=== PATIENT | male | born 1990 | race Asian ===

== ENCOUNTER 2019-10-01 20:48 | Inpatient (IN) | payer BC ==
[~2019-10-01] VITALS: Ht 167.6 cm; Wt 61.4 kg
[2019-10-01 21:00] VITALS: BP 128/81
[2019-10-01] MEDS ORDERED: Oxymetazoline 0.05% Na Spray 30ml NASAL ONE ×2 (21:01→21:45)
[2019-10-01] MEDS ORDERED: Clindamycin 600mg 50 ML IVPB ONE (21:15)
[2019-10-01] MEDS ORDERED: LORazepam Inj 2mg/ml 1ml IV ONE (21:15)
--- NOTE | 2019-10-01 21:30 | Emergency Room Report ---
History of Present Illness General Chief Complaint: Nosebleed Source: Patient Present Illness HPI This patient is status post nasal septal surgery today. He is accompanied by the plastic surgeon who did the nasal septal surgery Dr. Denson. He presents with bleeding from the left nare that has soaked the gauze packing and also dripping down the back of his throat. He also feels very anxious and has a sensation of not being able to breathe. He has no other complaints. 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 Patient History Past Medical History: none, see triage record Reviewed Nursing Documentation: PMH: Agreed; PSxH: Agreed Review of Systems All Other Systems: negative except mentioned in HPI Physical Exam Vital Signs Date Time Temp Pulse Resp B/P (MAP) Pulse Ox O2 Delivery O2 Flow Rate FiO2 10/01/19 20:57 98.2 83 20 128/81 (97) 100 Room Air Sp02 EP Interpretation: reviewed, normal General Appearance: no apparent distress, alert, GCS 15, non-toxic Head: normocephalic, atraumatic Eyes: bilateral eye normal inspection, bilateral eye PERRL ENT: hearing grossly normal, normal pharynx, no angioedema, normal voice, other - Nares pack. +blood from L. nare. Neck: normal inspection Respiratory: no respiratory distress, no retraction, no accessory muscle use, speaking full sentences Cardiovascular #1: regular rate, rhythm, no edema Rectal: deferred Musculoskeletal: back normal, normal range of motion, gait/station normal, non- tender Neurologic: alert, motor strength/tone normal, oriented x3, sensory intact, responsive, speech normal Psychiatric: judgement/insight normal, memory normal, mood/affect normal, no suicidal/homicidal ideation Skin: no rash, normal color Medical Decision Making Diagnostic Impression: Primary Impression: Post-op bleeding Additional Impression: Posterior epistaxis ER Course This patient presented with post operative bleeding of the left nare. He was accompanied by the plastic surgeon Dr. Denson. Afrin spray was placed in the nare. Dr. Denson placed a posterior Rhino Rocket. Patient was very anxious so I did give him IV Ativan. He was given IV fluids and IV antibiotics as a precaution. He will be admitted for monitoring with posterior nasal rhino- rocket packing and for monitoring of postoperative bleeding. Further management per Dr. Denson and the inpatient physician. Laboratory Tests Test 10/01/19 21:30 White Blood Count 12.9 K/UL (4.8-10.8) H Red Blood Count 4.45 M/UL (4.70-6.10) L Hemoglobin 14.1 G/DL (14.2-18.0) L Hematocrit 41.7 % (42.0-52.0) L Mean Corpuscular Volume 94 FL (80-99) Mean Corpuscular Hemoglobin 31.6 PG (27.0-31.0) H Mean Corpuscular Hemoglobin Concent 33.7 G/DL (32.0-36.0) Red Cell Distribution Width 11.3 % (11.6-14.8) L Platelet Count 281 K/UL (150-450) Mean Platelet Volume 6.1 FL (6.5-10.1) L Neutrophils (%) (Auto) 87.8 % (45.0-75.0) H Lymphocytes (%) (Auto) 7.6 % (20.0-45.0) L Monocytes (%) (Auto) 4.4 % (1.0-10.0) Eosinophils (%) (Auto) 0.0 % (0.0-3.0) Basophils (%) (Auto) 0.2 % (0.0-2.0) Sodium Level 138 MMOL/L (136-145) Potassium Level 4.2 MMOL/L (3.5-5.1) Chloride Level 104 MMOL/L (98-107) Carbon Dioxide Level 23 MMOL/L (21-32) Anion Gap 11 mmol/L (5-15) Blood Urea Nitrogen 20 mg/dL (7-18) H Creatinine 1.0 MG/DL (0.55-1.30) Estimated Glomerular Filtration Rate > 60 mL/min (>60) Glucose Level 144 MG/DL (74-106) H Calcium Level 8.6 MG/DL (8.5-10.1) Last Vital Signs Date Time Temp Pulse Resp B/P (MAP) Pulse Ox O2 Delivery O2 Flow Rate FiO2 10/01/19 20:57 98.2 83 20 128/81 (97) 100 Room Air Status: improved Disposition: ELOPED Condition: Serious Referrals: VISHAL DENSON M.D. (PCP) Sonia Viera DO Oct 01, 2019 21:30
[2019-10-01 21:51] LABS: BASOPHILS % (AUTO) 0.2 % (0.0-2.0); HEMATOCRIT 41.7 % (42.0-52.0); HEMOGLOBIN 14.1 G/DL (14.2-18.0); LYMPHOCYTES % (AUTO) 7.6 % (20.0-45.0); MEAN CORPUSCULAR VOLUME 94 FL (80-99); MONOCYTES % (AUTO) 4.4 % (1.0-10.0); NEUTROPHILS % (AUTO) 87.8 % (45.0-75.0); PLATELET COUNT 281 K/UL (150-450); RED BLOOD COUNT 4.45 M/UL (4.70-6.10); RED CELL DISTRIBUTION WIDTH 11.3 % (11.6-14.8); WHITE BLOOD COUNT 12.9 K/UL (4.8-10.8)
[2019-10-01 21:56] LABS: ANION GAP 11 mmol/L (5-15); BLOOD UREA NITROGEN 20 mg/dL (7-18); CALCIUM 8.6 MG/DL (8.5-10.1); CARBON DIOXIDE 23 MMOL/L (21-32); CHLORIDE 104 MMOL/L (98-107); POTASSIUM 4.2 MMOL/L (3.5-5.1); SODIUM 138 MMOL/L (136-145)
[2019-10-01] MEDS ORDERED: Milk of Magnesia 30ml Ud ORAL PRN (22:00)
[2019-10-01] MEDS ORDERED: HYDROcodone/Acetamin 5/325 tab ORAL PRN (22:00)
[2019-10-01] MEDS ORDERED: Zolpidem 5mg tab ORAL PRN (22:00)
[2019-10-01] MEDS ORDERED: Acetaminophen 650 MG SUPP RECTAL PRN ×2 (22:00)
[2019-10-01] MEDS ORDERED: Mylanta II UD 30ml ORAL PRN (22:00)
[2019-10-01] MEDS ORDERED: ZOFRAN ODT8 MG ORAL (22:33)
[2019-10-01] MEDS ORDERED: CEPHALEXIN500 MG ORAL (22:33)
[2019-10-01] MEDS ORDERED: PERCOCET 5-3251 EACH ORAL (22:33)
[2019-10-01] MEDS ORDERED: VALIUM5 MG ORAL (22:33)
[2019-10-01] MEDS: D5 1/2NS 1,000 ML IV SCH (23:05)
[2019-10-02] VITALS: BP 112/86
[2019-10-02 04:00] VITALS: BP 110/85
[2019-10-02 06:25] LABS: BASOPHILS % (AUTO) 0.4 % (0.0-2.0); EOSINOPHILS % (AUTO) 0.1 % (0.0-3.0); HEMATOCRIT 36.8 % (42.0-52.0); HEMOGLOBIN 12.1 G/DL (14.2-18.0); LYMPHOCYTES % (AUTO) 16.9 % (20.0-45.0); MEAN CORPUSCULAR VOLUME 95 FL (80-99); NEUTROPHILS % (AUTO) 72.7 % (45.0-75.0); PLATELET COUNT 216 K/UL (150-450); RED BLOOD COUNT 3.87 M/UL (4.70-6.10); RED CELL DISTRIBUTION WIDTH 10.9 % (11.6-14.8); WHITE BLOOD COUNT 12.8 K/UL (4.8-10.8)
[2019-10-02 08:00] VITALS: BP 121/80
[2019-10-02] MEDS: D5 1/2NS 1,000 ML IV SCH (09:09)
[2019-10-02 12:00] VITALS: BP 125/76
[2019-10-02] MEDS ORDERED: D5 1/2NS 1000ml IV ONE (14:53)
--- NOTE | 2019-10-02 15:00 | History and Physical Report ---
DATE OF ADMISSION: 10/01/2019 REASON FOR ADMISSION: Nasal bleeding. HISTORY OF PRESENT ILLNESS: Patient had surgery on 10/01/[address] Denson for nasal septal surgery. He presented with a moderate amount of bleeding from the left naris and had a nasal packing with a Rhino Rocket in the emergency room. He has generally been in excellent health. ALLERGIES: None known. MEDICATIONS: Adderall 7.5 mg b.i.d., which he is not taking the last several days. PRIOR SURGERIES: None except for wisdom teeth and the above. REVIEW OF SYSTEMS: Completely negative, other than the current problem and taking Adderall currently for attention deficit. PHYSICAL EXAMINATION: GENERAL: Patient is a well-developed man, in no acute distress. VITAL SIGNS: Temperature 98.1, pulse 87, respirations 21, blood pressure 121/80. HEENT: He has a Rhino Rocket in the left nostril. There is no active bleeding. No blood in the back of throat. NECK: No adenopathy. LUNGS: Clear. HEART: Regular rhythm. No murmur. ABDOMEN: Soft without organomegaly. EXTREMITIES: No edema, cyanosis, or clubbing. NEUROLOGIC: He is alert and oriented. Cranial nerves are intact. LABORATORY AND DIAGNOSTIC DATA: Reviewed. His hemoglobin 14.1 on 10/01/2019 and 12.1 on 10/02/2019. Chemistries are normal except for glucose of 144, likely from an IV. IMPRESSION: 1. Nasal bleeding postoperative. 2. Mild blood loss. 3. Glucose intolerance. PLAN: As per his surgeon when stabilized from surgical point of view, he is cleared medically for discharge. David Negron M.D. DR: ITZEL JOB#: [id number] CC:
[2019-10-02 16:00] VITALS: BP 119/73
[2019-10-02 20:00] VITALS: BP 120/75
--- NOTE | 2019-10-06 11:02 | Discharge Summary ---
Discharge Summary Discharge Summary _ DATE OF ADMISSION: 10/01/2019 DATE OF DISCHARGE: 10/02/2019 DISCHARGED BY: Dr. Negron REASON FOR ADMISSION: 29 years old male with no significant past medical history, had nasal septal surgery by Dr. Denson on 10/01/2019. Patient presented with bleeding from the left nare that soaked the gauze packing and was dripping down the back of his throat. Upon evaluation WBC 12.9, stable hemoglobin, hematocrit and platelet count. Stable electrolytes and renal parameters. Glucose 144 In emergency department Afrin spray was placed in the nare. Surgeon placed a posterior Rhino Rocket. Patient received IV fluids and empiric antibiotic and admitted for monitoring of posterior nasal Rhino Rocket packing and postoperative bleeding. HOSPITAL COURSE: Patient admitted to medical surgical floor. Nasal bleeding was stabilized and stopped. The next day hemoglobin 12.1 , hematocrit 36.8. Patient was clinically stable for discharge home. Due to rapid and unexpected improvement in patient condition, patient was discharged in 1 day. FINAL DIAGNOSES: Postoperative nasal bleeding Mild blood loss Glucose intolerance DISCHARGE MEDICATIONS: See Medication Reconciliation list. DISCHARGE INSTRUCTIONS: She was discharged home. Outpatient follow-up with the plastic surgeon as scheduled. I have been assigned to dictate discharge summary for this account. I was not involved in the patient's management. Kristel Schmitt NP Oct 06, 2019 11:02
== END 2019-10-02 20:15 | disposition home or self-care (01) | DRG 921 ==
LOC: EMR 21:19 → 3E 21:31 → EDBEDREQ 22:18
PROC: 2Y41X5Z Packing of Nasal Region using Packing Material (ICD-10-PCS; principal; 2019-10-01)
DX: J95.830 Postprocedural hemorrhage of a respiratory system organ or structure following a respiratory system procedure (principal); Y83.8 Other surgical procedures as the cause of abnormal reaction of the patient, or of later complication, without mention of misadventure at the time of the procedure; E74.39 Other disorders of intestinal carbohydrate absorption
CPT/HCPCS: 36415; 80048; 82962; 85025; 96361; 96365; 96375; 99285; J7030; S0077